=== PATIENT | female | born 1990 | race Caucasian/White ===

== ENCOUNTER 2020-09-19 16:55 | Emergency (ER) | payer OTHER ==
[2020-09-19] MEDS ORDERED: LODINE CAP 300300 MG PO (19:00)
== END 2020-09-19 17:37 | disposition left against medical advice (07) ==
LOC: ER1 16:55
DX: Z53.21 Procedure and treatment not carried out due to patient leaving prior to being seen by health care provider (principal)

== ENCOUNTER 2020-09-19 17:50 | Emergency (ER) | payer OTHER ==
[2020-09-19] MEDS ORDERED: LODINE CAP 300300 MG PO (19:00)
== END 2020-09-19 19:30 | disposition home or self-care (01) ==
LOC: ER1 17:50
DX: S71.012D Laceration without foreign body, left hip, subsequent encounter (principal)
CPT/HCPCS: 99281